=== PATIENT | female | born 1965 | race Caucasian/White ===

== ENCOUNTER → 2020-09-26 07:39 | Outpatient (CLI) | payer OTHER, SELFPAY ==
--- NOTE | 2020-09-26 | DI.RAD.S_ITS ---
PROCEDURE: [place] SHOULDER INJECTION MR/CT LT INDICATIONS: R/O labrum tear vs rtct COMPARISON: [facility], MR, MR SHOULDER LT W CON, 09/26/2020, 8:36. TECHNIQUE: The indications, alternatives, benefits, risks, and complications of the procedure were explained to the patient. Written informed consent was obtained and placed in the chart. The shoulder was examined fluoroscopically and a site for needle placement chosen for entry into the glenohumeral joint from an anterior approach. The skin was prepped and draped in a sterile fashion, and 1% lidocaine infiltrated from skin down to joint capsule. A spinal needle was inserted into the glenohumeral joint, and a small amount of iodinated contrast media injected to confirm intra-articular placement of the needle tip. This was followed by approximately 12 mL dilute solution of a gadolinium containing MR contrast agent. The needle was removed and a dressing was applied. The patient was given postprocedural instructions and sent to the MR suite for MR imaging. FINDINGS: A single fluoroscopic spot image demonstrates intra-articular location of injected iodinated contrast. IMPRESSION: Successful fluoroscopically guided administration of dilute Gadolinium solution into the shoulder joint for MR arthrogram. Dictated by: Du Eduardo M.D. on 09/26/2020 at 9:50 Approved by: Du Eduardo M.D. on 09/26/2020 at 9:53
--- NOTE | 2020-09-26 | DI.MRI.S_ITS ---
PROCEDURE: MR SHOULDER LT W CON INDICATIONS: R/O labrum tear vs rtct TECHNIQUE: After the administration of 12 mL of dilute intra-articular Gadolinium contrast, oblique coronal T1 and T2 spin echo with fat saturation, oblique sagittal T1 spin echo with and without fat saturation, oblique sagittal T2 fast spin echo with fat saturation, axial T1 spin echo with fat saturation through the shoulder. COMPARISON: [facility], CR, XR SHOULDER 2+ VIEWS LEFT, 08/04/2020, 16:20. [facility], CR, XR SHOULDER 1 VIEW LEFT, 08/21/2020, 14:12. [facility], , [place] SHOULDER INJECTION MR/CT LT, 09/26/2020, 8:51. FINDINGS: Image quality: Excellent. Rotator cuff: T1-hyperintense material is seen within the supraspinatus muscle and tendon and the subacromial/subdeltoid bursa that may be related to extravasation during the arthrogram injection versus a full-thickness perforation. There is mild irregularity of the bursal surface fibers compatible with fraying or low-grade tearing. No significant retracted rotator cuff tendon tear is seen. The teres minor and subscapularis tendons are intact. There is no significant rotator cuff muscle atrophy. Bones and bursae: No acute bone marrow contusions or fractures. There is a focal high-grade cartilage loss in the central glenoid with minimal subchondral edema. There is mild acromioclavicular joint osteoarthrosis. Downsloping of the lateral acromion is seen without significant narrowing of the supraspinatus outlet. No intra-articular loose body is seen. Capsule and soft tissues: No labral tear is identified. The long head of the biceps tendon demonstrates normal location and morphology. The inferior glenohumeral ligament is normal in thickness. IMPRESSION: 1. Supraspinatus and infraspinatus tendinosis with low-grade bursal surface fraying/partial tearing. No large retracted rotator cuff tendon tear is seen. T1-hyperintense material within the supraspinatus muscle and the subacromial/subdeltoid bursa is most likely related to extravasation during the arthrogram injection rather than a full-thickness tear. 2. Intact glenoid labrum. 3. Focal high-grade cartilage loss in the central glenoid with minimal subchondral edema. 4. Mild acromioclavicular joint osteoarthrosis. Dictated by: Boris Morrison M.D. on 09/26/2020 at 8:12 Approved by: Boris Morrison M.D. on 09/26/2020 at 8:31
== END ==
PROVIDERS: PCP Internal Medicine; Referring Provider Internal Medicine; Visit Provider Orthopaedic Surgery Foot and Ankle Surgery
DX: M75.112 Incomplete rotator cuff tear or rupture of left shoulder, not specified as traumatic (principal); M19.012 Primary osteoarthritis, left shoulder; S43.432D Superior glenoid labrum lesion of left shoulder, subsequent encounter
CPT/HCPCS: 23350; 73222; 77002